=== PATIENT | female | born 1955 | race Caucasian/White ===

== ENCOUNTER 2025-03-18 00:41 | Emergency (ER) | payer BC ==
[~2025-03-18] VITALS: Ht 170.2 cm; Wt 79.4 kg
[2025-03-18 01:50] LABS: PLATELET COUNT (AUTO) 221 K/uL (150-450); RED BLOOD CELL COUNT(AUTO) 4.68 MIL/uL (4.0-5.2); RED CELL DISTRIBUTION WIDTH 13.8 % (11.5-15.0); WHITE BLOOD COUNT (AUTO) 9.0 K/uL (4.3-11.0)
[2025-03-18 01:58] LABS: CALCIUM, SERUM 8.6 mg/dL (8.5-10.1); CREATININE 0.9 mg/dL (0.6-1.3); SODIUM SERUM 143.0 mmol/L (136-145); UREA NITROGEN, BLOOD 14.0 mg/dL (7-18)
[2025-03-18 02:06] LABS: LACTIC ACID 1.3 mmol/L (0.4-2.0)
[2025-03-18 02:11] LABS: ASPARTATE AMINOTRANSFERASE 19.0 U/L (15-37); NT-PRO BNP 177.0 pg/mL (0-125); TOTAL PROTEIN, SERUM 6.6 g/dL (6.4-8.2)
[2025-03-18] MEDS: ALBUTEROL FS 2.5 MG/3 ML VIAL.NEB NEB ONE (03:10)
[2025-03-18] MEDS ORDERED: ALBUTEROL FS 2.5 MG/3 ML VIAL.NEB ONE (03:14)
[2025-03-18] MEDS ORDERED: CT SWABBABLE VALVE TRANS SET 1 EA INFUS.SET MC ONE (03:16)
[2025-03-18] MEDS ORDERED: IOHEXOL-350 100 ML VIAL IV ONE (03:16)
[2025-03-18] MEDS ORDERED: IV NS 0.9% 250 ML IV ONE (03:16)
[2025-03-18 03:19] VITALS: O2SAT 98
[2025-03-18 03:29] VITALS: O2SAT 100
[2025-03-18] MEDS ORDERED: LORAZEPAM INJ 2 MG/ML VIAL ONE (03:40)
[2025-03-18] MEDS: LORAZEPAM INJ 2 MG/ML VIAL IV ONE (03:54)
[2025-03-18] MEDS ORDERED: HYDROMORPHONE 1 MG/1 ML DISP.SYRIN ONE (04:00)
[2025-03-18] MEDS ORDERED: ONDANSETRON HCL/PF 4 MG/2 ML VIAL ONE (04:00)
[2025-03-18] MEDS: ONDANSETRON HCL/PF - ER 4 MG/2 ML VIAL IV ONE (04:10)
[2025-03-18] MEDS: HYDROMORPHONE 1 MG/1 ML DISP.SYRIN IV ONE (04:10)
[2025-03-18] MEDS ORDERED: BENZ-13 PO (06:01)
[2025-03-18] MEDS ORDERED: PRED50TA PO (06:01)
[2025-03-18] MEDS ORDERED: AZIT250T PO (06:01)
[2025-03-18] MEDS ORDERED: ALBU8.5H8 INH (06:01)
[2025-03-18 06:20] VITALS: BP 135/60; TEMP 98.2; O2SAT 97
== END 2025-03-18 06:21 | disposition home or self-care (01) ==
LOC: ER 00:57
DX: R06.00 Dyspnea, unspecified (principal); J06.9 Acute upper respiratory infection, unspecified; I10 Essential (primary) hypertension; Z88.5 Allergy status to narcotic agent; Z20.822 Contact with and (suspected) exposure to COVID-19; Z60.2 Problems related to living alone
CPT/HCPCS: 99285; 96374; 71275; 96375; 71045; 87426; 93005; 87804 ×2; 85025; 87040; 83605; 36415; 87880; 80053; 84484; 83880; 94640; 87070; J2060; J2405; J7050; Q9967; J1171; 86403-TC